=== PATIENT | female | born 1965 | race Caucasian/White ===

== ENCOUNTER 2018-11-12 18:32 | Emergency (ER) | payer OTHER ==
[~2018-11-12] VITALS: Ht 165.1 cm; Wt 72.6 kg
--- NOTE | 2018-11-12 18:46 | NUR ---
Dr Zuleta at the bedside for MSE.
[2018-11-12] MEDS ORDERED: FAMOTIDINE. 20 MG/2 ML VIAL IV ONE ×2 (19:00→19:05)
[2018-11-12] MEDS ORDERED: ONDANSETRON 4 MG/2 ML VIAL IV ONE (19:00)
[2018-11-12] MEDS ORDERED: IV NORMAL SALINE 1000 ML BAG IV ONE ×2 (19:00→19:45)
[2018-11-12] MEDS ORDERED: ONDANSETRON 4 MG/2 ML VIAL ONE ×2 (19:04→19:35)
[2018-11-12 19:06] LABS: BASOPHILS # (AUTO) 0.1 K/uL (0.0-8.0); BASOPHILS % (AUTO) 1.1 % (0.0-2.0); EOSINOPHILS # (AUTO) 0.1 K/uL (0.0-0.7); EOSINOPHILS % (AUTO) 1.1 % (0.0-7.0); HEMATOCRIT 40.6 % (31.2-41.9); HEMOGLOBIN 13.6 g/dL (10.9-14.3); LYMPHOCYTES # (AUTO) 2.5 K/uL (20.0-40.0); LYMPHOCYTES % (AUTO) 26.8 % (20.5-51.5); MEAN CORPUSCULAR HEMOGLOBIN 30.2 uug (24.7-32.8); MEAN CORPUSCULAR HGB CONC 34 g/dL (32.3-35.6); MONOCYTES # (AUTO) 0.6 K/uL (2.0-10.0); MONOCYTES % (AUTO) 6.5 % (0.0-11.0); NEUTROPHILS % (AUTO) 64.5 % (38.5-71.5); PLATELET COUNT (AUTO) 280 K/uL (179-408); RED BLOOD CELL COUNT(AUTO) 4.51 MIL/uL (3.63-4.92); WHITE BLOOD COUNT (AUTO) 9.3 K/uL (3.8-11.8)
[2018-11-12 19:12] LABS: CREATININE 0.8 mg/dL (0.6-1.3); POTASSIUM 3.8 mmol/L (3.5-5.1)
[2018-11-12 19:24] LABS: BILIRUBIN,DIRECT 0.1 mg/dL (0.0-0.2); BILIRUBIN,TOTAL 0.2 mg/dL (0.2-1.0); TOTAL PROTEIN, SERUM 7.5 g/dL (6.4-8.2)
[2018-11-12] MEDS ORDERED: ONDANSETRON IV *ER 4 MG/2 ML VIAL IV ONE (19:30)
--- NOTE | 2018-11-12 19:55 | NUR ---
PATIENT STATES "I FEEL ALOT BETTER NOW. I WOULD LIKE TO GO HOME."
--- NOTE | 2018-11-12 19:57 | NUR ---
IV removed. Catheter intact and site benign. Pressure and 4x4 gauze applied to site. No bleeding noted.
--- NOTE | 2018-11-12 20:06 | NUR ---
Patient discharged to home in stable conditon. Written and verbal after care instructions given. Patient verbalizes understanding of instructions. WALKED OUT OF ER WITH NO DISTRESS NOTED
[2018-11-12 20:07] VITALS: BP 128/90
== END 2018-11-12 20:10 | disposition home or self-care (01) ==
LOC: ER 18:32
DX: R11.0 Nausea (principal); E03.9 Hypothyroidism, unspecified
CPT/HCPCS: 36415; 80048; 80076; 83690; 84443; 84484; 85025; 93005; 96374; 96375; 99284; J2405 ×2; J3490; 70030-TC; A4663; J7030